=== PATIENT | female | born 1990 | race Two or more races ===

== ENCOUNTER 2024-04-07 20:19 | Emergency (ER) | payer BC ==
[~2024-04-07] VITALS: Ht 167.6 cm; Wt 98.9 kg
[2024-04-07] MEDS ORDERED: HYDROCHLOROTHIA25 MG PO (20:49)
[2024-04-07] MEDS ORDERED: PROZAC10 MG PO (20:49)
[2024-04-07] MEDS ORDERED: IBRANCE75 MG PO (20:50)
[2024-04-08] MEDS ORDERED: PROMETHAZINE HCL 50 MG/ML AMPUL IM STA (00:20)
[2024-04-08] MEDS ORDERED: HYOSCYAMINE SULFATE 0.125 MG TAB.SUBL SL STA (00:20)
[2024-04-08] MEDS ORDERED: LACTOBACILLUS ACIDOPHILUS 1 CAP CAP PO STA (00:21)
[2024-04-08] MEDS ORDERED: FAMOTIDINE/PF 20 MG/2 ML VIAL IV PUSH STA (00:21)
[2024-04-08] MEDS ORDERED: 0.9 % SODIUM CHLORIDE 1,000 ML IV ONE (00:30)
[2024-04-08] MEDS ORDERED: HYOSCYAMINE SULFATE 0.125 MG TAB.SUBL ONE (00:32)
[2024-04-08] MEDS ORDERED: PROMETHAZINE HCL 50 MG/ML AMPUL IM ONE (00:32)
[2024-04-08] MEDS ORDERED: LACTOBACILLUS ACIDOPHILUS 1 CAP CAP PO ONE (00:33)
[2024-04-08 00:51] LABS: PH,URINE 5.5 (5.0-8.0); URINE APPEARANCE Clear; URINE BILIRRUBIN Negative (NEGATIVE); URINE BLOOD Negative; URINE COLOR Yellow; URINE GLUCOSE Negative (NEGATIVE); URINE LEUKOCYTE Negative; URINE NITRATE Negative; URINE PROTEIN Negative (NEGATIVE); URINE UROBILINOGEN 0.2 E.U./dl
[2024-04-08 00:53] LABS: HEMATOCRIT 39.5 % (36.0-45.00); HEMOGLOBIN 13.2 g/dL (12.0-15.00); MEAN CELL VOLUME 80.2 fL (80.00-100.00); MEAN CORPUSCULAR HEMOGLOBIN 26.8 pg (27.00-32.0); MEAN CORPUSCULAR HGB CONC 33.4 g/dl (32.0-36.0); PLATELET COUNT 298 K/uL (150-450); RED BLOOD COUNT 4.93 M/uL (4.00-6.00); RED CELL DISTRIBUTION WIDTH 14.2 % (11.5-14.5)
[2024-04-08 00:55] LABS: URINE BACTERIA 641.1 uL (0.0-1933); URINE EPITHELIAL CELLS 16.8 uL (0.0-38.8); URINE RBC 4.8 uL (0.0-20.8); URINE WBC 4.6 uL (0.0-23.2)
[2024-04-08 01:19] LABS: ALBUMIN 3.9 gm/dL (3.4-5.0); BILIRUBIN TOTAL 0.32 mg/dL (0.3-1.2); BILIRUBIN,CONJUGATED 0.1 mg/dL (0.0-0.2); BILIRUBIN,UNCONJUGATED 0.22 mg/dL (0.0-0.6); CALCIUM 9.3 mg/dL (8.5-10.1); CREATININE SERUM 0.78 mg/dL (0.55-1.02); GFR 84.54; POTASSIUM 4.02 mEq/L (3.5-5.1); TOTAL PROTEIN 8.3 gm/dL (6.4-8.2)
[2024-04-08] MEDS ORDERED: MEPERIDINE HCL 25 MG/ML AMPUL IM STA (02:58)
[2024-04-08] MEDS ORDERED: PEPCID40 MG PO (03:23)
[2024-04-08] MEDS ORDERED: INTESTINEX680 M2 PO (03:23)
[2024-04-08] MEDS ORDERED: ZOFRAN8 MG PO (03:23)
== END 2024-04-08 03:31 ==
LOC: ER 20:20
PROVIDERS: General Practice
DX: R11.10 Vomiting, unspecified (principal); R19.7 Diarrhea, unspecified; I10 Essential (primary) hypertension